=== PATIENT | female | born 1990 | race Two or more races ===

== ENCOUNTER 2020-10-04 22:26 | Emergency (ER) | payer MEDICAID, OTHER ==
[~2020-10-04] VITALS: Ht 170.2 cm; Wt 78.3 kg
[2020-10-04 22:31] VITALS: BP 107/75
[2020-10-04] MEDS ORDERED: HYDR30CR79 TOP (23:24)
[2020-10-04] MEDS ORDERED: DOCU-148 PO (23:24)
== END 2020-10-04 23:41 | disposition home or self-care (01) ==
LOC: ER 22:27
DX: K64.4 Residual hemorrhoidal skin tags (principal)
CPT/HCPCS: 99282

== ENCOUNTER → 2020-11-07 | Day surgery (SDC) | payer MEDICAID, OTHER ==
[2020-11-04 10:08] LABS: BASOPHILS % (AUTO) 0.6 % (0-1); EOSINOPHILS # (AUTO) 0.2 X10'3 (0-0.9); EOSINOPHILS % (AUTO) 2.5 % (0-6); LYMPHOCYTES # (AUTO) 1.8 X10'3 (1.1-4.8); LYMPHOCYTES % (AUTO) 23.8 % (21-51); MEAN CORPUSCULAR HEMOGLOBIN 30.3 PG (27.0-31.0); MEAN CORPUSCULAR HGB CONC 33.9 g/dL (33.0-36.5); MEAN CORPUSCULAR VOLUME 89.6 FL (78-98); MEAN PLATELET VOLUME 9.7 FL (7.4-10.4); MONOCYTES # (AUTO) 0.5 X10'3 (0-0.9); MONOCYTES % (AUTO) 6.6 % (2-12); NEUTROPHILS % (AUTO) 66.5 % (42-75); PRE OP HEMOGLOBIN 14.2 g/dL (12.0-16.0); PRE OP PLATELET COUNT 229 X10'3 (140-440); RED BLOOD COUNT 4.68 X10'6 (4.20-5.60)
[2020-11-04 10:32] LABS: HCG SERUM QL NEGATIVE
[~2020-11-07] VITALS: Ht 170.2 cm; Wt 75.2 kg
[2020-11-07] VITALS (11 sets, daily range): BP systolic 95–113; BP diastolic 55–75
[~2020-11-07] MED LIST: BUPIVAcaine/PF 2.5mg/ml (0.25%) 10ml vial ONE; LIDOcaine 1% W/epiNEPHrine 1:100,000 20ml vial ONE; MIDAZolam 1 MG/ML 5ML VIAL ONE; NO HOME MEDS; acetaminophen 1,000mg/100ml IV 100 ML IV PRN; famotidine 20mg tablet PO ONE; fentaNYL/PF 50MCG/1 ML 2ML syringe ONE; hydrALAZINE 20mg/ml inj. IV PRN; labetalol 20mg/4ml (5mg/ml) syringe IV PRN; meperidine/PF 25mg/ml syringe IV PRN; metroNIDAZOLE-Flagyl 500mg/NS 100 ML IV ONE; morphine 2 MG/ML inj. syringe IV PRN; morphine 4 MG/ML inj SYRINge IV PRN; ondansetron/PF 4mg/2ml inj IV PRN; proCHLORperazine 10 MG/2 ml inj IV PRN; propofol inj 20 ML IV ONE; ringers solution, lacted 1,000 ML IV SCH
--- NOTE | 2020-11-07 11:50 | NUR ---
TAP WATER ENEMA GIVEN PER DR. HINOJOSA. Addendum: 11/07/20 at 1222 by Amelia Johnson RN Amended: Links added.
--- NOTE | 2020-11-07 13:31 | NUR ---
RECIEVED REPORT ASSUME CARE VSS NO DISTRESS DENIES PAIN, ANTELMO PAD IN PLACE WITH MESS PANTIES ON. CONT TO MONITOR Addendum: 11/07/20 at 1336 by Amelia Johnson RN Amended: Links added.
--- NOTE | 2020-11-07 15:00 | NUR ---
PT AWAKE VSS NO DISTRESS DENIES PAIN, WALKING AROUND IN ROOM READY AND MEETS CRITERIA TO GO HOME WAITING FOR RIDE. DC INSTR GIVEN NO ?'S OR CONCERNS Addendum: 11/07/20 at 1512 by Amelia Johnson RN Amended: Links added.
== END | disposition home or self-care (01) ==
LOC: PAS 09:15
PROVIDERS: ATTEND Colon & Rectal Surgery
DX: K62.89 Other specified diseases of anus and rectum (principal); K64.4 Residual hemorrhoidal skin tags; K60.1 Chronic anal fissure; Z79.899 Other long term (current) drug therapy
CPT/HCPCS: 36415; 46261; 82948; 84703; 85025; J2250; J2704; J3010; J3490; A4215; A4402; A4618; A6253; A6449; A7000; J7120